=== PATIENT | male | born 1945 | race Caucasian/White ===

== ENCOUNTER 2018-09-12 22:45 | Inpatient (IN) ==
[2018-09-12] MEDS ORDERED: SODIUM CHLORIDE 0.9% 1,000 ML IV STA (23:19)
[2018-09-12] MEDS ORDERED: PANTOPRAZOLE 40 MG VIAL IV STA (23:19)
[2018-09-12] MEDS ORDERED: ONDANSETRON 4 MG/2 ML VIAL IV STA (23:19)
[2018-09-12 23:32] LABS: Basophils % 0.4 % (0.0-0.8); Eosinophils % 0.4 % (0.00-10.9); Hematocrit 22.8 VOL% (42.0-52.0); Hemoglobin 7.3 GM/DL (14.0-18.0); Immature Granulocytes % 5.1 %; Immature Granulocytes Absolute 0.49 #; Lymphocytes # 1.1 10*3/uL (1.4-4.0); Lymphocytes % 11.1 % (21.2-54.2); Mean Corpuscular Volume 91.9 FL (87-102); Mean Platelet Volume 10.7 FL (9.6-12.0); Monocytes % 7.4 % (1.7-12.7); Neutrophils % 75.6 % (38.7-73.9); Platelet Count 169 T/CUMM (130-400); Red Blood Count 2.48 MC/CUMM (3.8-5.5); Red Cell Distribution Width 15.7 % (9.3-17.3); White Blood Count 9.6 T/CUMM (4-12)
[2018-09-12 23:54] LABS: Alanine Aminotransferase 120 U/L (16-61); Albumin 1.9 G/DL (3.4-5.0); Alkaline Phosphatase 227 U/L (45-117); Amylase 50 U/L (25-115); Aspartate Amino Transferase 288 U/L (0-37); Blood Urea Nitrogen 58 MG/DL (7-18); Calcium 7.5 MG/DL (8.5-10.1); Glucose 104 MG/DL (74-106); Osmolality,Calculated 298.1 MOS/KG (273-304); Total Protein 5.2 G/DL (6.4-8.3); Troponin I < 0.015 NG/ML (0.00-0.045)
[2018-09-13] MEDS ORDERED: fentaNYL 100 MCG/2 ML VIAL IV STA (00:08)
[2018-09-13] MEDS ORDERED: fentaNYL 100 MCG/2 ML VIAL ONE (00:10)
[2018-09-13] MEDS ORDERED: LACTATED RINGERS 1,000 ML IV ONE (00:45)
[2018-09-13 00:59] LABS: Lymphocytes 9 % (20-55); Platelet Estimate Decreased; Polychromasia Few; Segmented Neutrophils 89 % (50-85); Total Cells Counted 100
[2018-09-13] MEDS ORDERED: SODIUM CHLORIDE 0.9% 1,000 ML IV PRN ×2 (01:12→09:41)
[2018-09-13] MEDS ORDERED: OCTREOTIDE 100 MCG/ML SYRINGE IV ONE (01:34)
[2018-09-13] MEDS ORDERED: ALBUTEROL 2.5 MG/3 ML NEB RESP TX PRN (01:34)
[2018-09-13] MEDS ORDERED: MAGNESIUM SULF RIDER 4 GM in PREMIX 1 EACH IV PRN (01:44)
[2018-09-13] MEDS ORDERED: MAGNESIUM SULF RIDER 2 GM in PREMIX 1 EACH IV PRN (01:44)
[2018-09-13] MEDS: SODIUM CHLORIDE 0.9% 1,000 ML IV SCH ×2 (01:54→08:46)
[2018-09-13] MEDS ORDERED: PANTOPRAZOLE INJ 200 MG in SODIUM CHLORIDE 0.9% 250 ML IV SCH (02:00)
[2018-09-13] MEDS: OCTREOTIDE 500 MCG in SODIUM CHLORIDE 0.9% 100 ML IV SCH ×2 (02:05→14:07)
[2018-09-13 02:27] LABS: INR 1.2; PT Patient Result 12.7 SECS
[2018-09-13] MEDS: ONDANSETRON 4 MG/2 ML VIAL IV PRN ×2 (02:42→06:19)
[2018-09-13 02:43] LABS: Basophils % 0.2 % (0.0-0.8); Hematocrit 22.4 VOL% (42.0-52.0); Hematocrit 22.6 VOL% (42.0-52.0); Hemoglobin 6.9 GM/DL (14.0-18.0); Immature Granulocytes % 3.1 %; Immature Granulocytes Absolute 0.35 #; Lymphocytes # 1.2 10*3/uL (1.4-4.0); Lymphocytes % 10.9 % (21.2-54.2); Mean Corpuscular HGB Conc 30.8 GM/DL (32-36); Mean Corpuscular Volume 93.3 FL (87-102); Monocytes % 4.4 % (1.7-12.7); Neutrophils % 81.4 % (38.7-73.9); Platelet Count 209 T/CUMM (130-400); Red Cell Distribution Width 15.9 % (9.3-17.3); White Blood Count 11.2 T/CUMM (4-12)
[2018-09-13 03:09] LABS: Calcium 7.7 MG/DL (8.5-10.1); Osmolality,Calculated 298.3 MOS/KG (273-304); Thyroid Stimulating Hormone 3.61 uIU/ml (0.358-3.74)
[2018-09-13] MEDS ORDERED: SODIUM CHLORIDE 0.9% 250 ML IV ONE (03:25)
[2018-09-13] MEDS ORDERED: LEVOTHYROXINE 50 MCG TABLET PO SCH (06:00)
[2018-09-13 07:09] LABS: Apearance,Urine CLEAR (Clear); Bilirubin,Urine Negative (Negative); Blood, Urine Negative (Negative); Glucose,Urine (UA) Negative (Negative); Hyaline Casts,Urine 1 /LPF (0-3); Ketones,Urine Negative (Negative); Mucus,Urine Occasional /LPF (Occasional); Nitrite,Urine Negative (Negative); Protein,Urine Negative; RBC,Urine 1 /HPF (0-4); Urine Color Yellow (Yellow); WBC,Urine 1 /HPF (0-6)
[2018-09-13] MEDS ORDERED: PANTOPRAZOLE 40 MG VIAL IV SCH (09:00)
[2018-09-13] MEDS ORDERED: ONDANSETRON 4 MG/2 ML VIAL IV PRN (09:14)
[2018-09-13] MEDS ORDERED: PROMETHAZINE INJ 25 MG in SODIUM CHLORIDE 0.9% 50 ML IV PRN (09:14)
[2018-09-13] MEDS ORDERED: NOREPINEPHRINE 4 MG/4 ML VIAL IV ONE (09:27)
[2018-09-13] MEDS ORDERED: NOREPINEPHRINE 8 MG in SODIUM CHLORIDE 0.9% 242 ML IV PRN (10:01)
[2018-09-13] MEDS ORDERED: EPINEPHrine 1 MG/10 ML SYRINGE IV ONE (10:15)
[2018-09-13] MEDS ORDERED: SODIUM CHLORIDE 0.9% 1,000 ML IV ONE (10:15)
[2018-09-13] MEDS ORDERED: EPINEPHrine 1 MG/ML VIAL IV ONE (10:25)
[2018-09-13] MEDS ORDERED: SUCCINYLCHOLINE 200 MG/10 ML VIAL ONE (10:29)
[2018-09-13] MEDS ORDERED: PROPOFOL 200 MG/20 ML VIAL IV ONE (10:29)
[2018-09-13] MEDS ORDERED: SODIUM BICARBONATE 50 MEQ/50 ML SYRINGE IV ONE (10:33)
[2018-09-13] MEDS ORDERED: CALCIUM CHLORIDE 1,000 MG/10 ML SYRINGE IV ONE (10:34)
[2018-09-13 10:41] LABS: Hepatitis B Core IgM Quant < 0.05 Index; Hepatitis B Surface Ag Quant < 0.10 Index; Hepatitis B Surface Ag Result Negative (Negative); Hepatitis C Virus Ab Quant > 11.00 Index; Hepatitis C Virus Ab Result Positive (Negative)
[2018-09-13 17:50] VITALS: BP 94/77
== END 2018-09-13 10:40 | disposition expired | DRG 441 ==
LOC: EDUNIT# → EDBD → N.ED 22:45 → N.EDINP 09-13 01:08 → N.ICU 09-13 01:29
PROVIDERS: ADMIT Internal Medicine; ATTEND Internal Medicine